=== PATIENT | female | born 1995 | race African-American/Black ===

== ENCOUNTER 2020-06-02 15:55 | Emergency (ER) | payer OTHER ==
[2020-06-02 16:01] VITALS: BP 116/70; PULSE 63; TEMP 97; BMI 22.2
[2020-06-02] MEDS ORDERED: IBUPROFEN 400 MG TABLET (FP) PO ONE ×2 (17:06→17:07)
== END 2020-06-02 17:10 | disposition home or self-care (01) ==
LOC: JERFT 15:55
DX: M54.89 Other dorsalgia (principal); M25.561 Pain in right knee; V49.40XA Driver injured in collision with unspecified motor vehicles in traffic accident, initial encounter
CPT/HCPCS: 99283-25